=== PATIENT | female | born 1940 | race Caucasian/White ===

== ENCOUNTER 2016-04-24 20:10 | Emergency (ER) | payer MEDICARE, OTHER ==
[~2016-04-24] VITALS: Ht 149.9 cm; Wt 65.8 kg
[~2016-04-24 20:10] MED LIST: COZAAR50 MG PO; CULTURELLE PO; FISH OIL1 GM PO; IRON SUPPLEMEN325 MG PO; LOMOTIL 0.025-21 TAB PO; MULTI-DAY VITA1 EACH PO; RESTASIS1 EACH EYEBOTH; SYNTHROID50 MCG PO; SYSTANE ULTRA 010 ML EYEBOTH; ZANTAC300 MG PO; ZOCOR20 MG PO
== END 2016-04-24 22:45 | disposition short-term general hospital (02) ==
LOC: ER 20:10
DX: K52.9 Noninfective gastroenteritis and colitis, unspecified (principal); E86.0 Dehydration; I10 Essential (primary) hypertension; L57.0 Actinic keratosis; Z88.1 Allergy status to other antibiotic agents; Z88.8 Allergy status to other drugs, medicaments and biological substances
CPT/HCPCS: J2405